=== PATIENT | male | born 1980 | race African-American/Black ===

== ENCOUNTER 2017-10-10 14:48 | Emergency (ER) | payer SELFPAY ==
[~2017-10-10] VITALS: Ht 180.3 cm; Wt 79.4 kg
--- NOTE | 2017-10-10 15:00 | NUR ---
Presents to ER c/o right sided chest pain that radiates to back x 1 hr ago at work. Patient is a/ox 4. breathing even and unlabored. no sob. vitals stable. safety and comfort measures in place. awaiting md orders.
--- NOTE | 2017-10-10 15:05 | NUR ---
at bedside for eval.
--- NOTE | 2017-10-10 15:35 | NUR ---
CLOTH CUTTING MACHINE OPERATOR AT BEDSIDE.
--- NOTE | 2017-10-10 16:49 | NUR ---
DPatient discharged to home in stable condition. Written and verbal after care instructions given. Patient verbalizes understanding of instruction.
[2017-10-10 16:51] VITALS: BP 121/84
== END 2017-10-10 16:51 | disposition home or self-care (01) ==
LOC: ER 14:50
DX: R07.89 Other chest pain (principal); R91.8 Other nonspecific abnormal finding of lung field; F17.200 Nicotine dependence, unspecified, uncomplicated; F12.10 Cannabis abuse, uncomplicated
CPT/HCPCS: 71010; 93005; 99284; A4606; Z7610